=== PATIENT | female | born 1990 | race African-American/Black ===

== ENCOUNTER 2020-07-30 17:51 | Inpatient (IN) | payer OTHER ==
--- NOTE | 2020-07-30 18:09 | ER Document Report ---
ED Medical Screen (RME) - General Chief Complaint: Pelvic Pain Stated Complaint: ABDOMINAL PAIN/POSSIBLE WATER LEAKING/FEELS POPPIN Time Seen by Provider: 07/30/20 18:01 Mode of Arrival: Wheelchair Information source: Patient Notes: 29-year-old female 19 weeks today . She states she was out shopping when she felt severe cramping cramping in her pelvic area. She states when she went home she felt like she needed to have a bowel movement had a lot of pressure so she had a bowel movement and felt something popping. She states after she had a bowel movement she wiped herself good and then cleaned her hands well and examined herself in her vagina and felt something bulging and clear liquids coming out. She states she is 3 para 2. She states she does go to the [employer] [employer]. I have greeted and performed a rapid initial assessment of this patient. A comprehensive ED assessment and evaluation of the patient, analysis of test results and completion of medical decision making process will be conducted by an additional ED providers. - Related Data Allergies/Adverse Reactions: erythromycin base Allergy (Severe, Verified 07/30/20 18:09) Hives
--- NOTE | 2020-07-30 18:53 | RADIOLOGY REPORT (SQ) ---
EXAM DESCRIPTION: U/S OB LIMITED IMAGES COMPLETED DATE/TIME: 07/30/2020 6:35 pm REASON FOR STUDY: Pelvic cramping 19 weeks COMPARISON: None. TECHNIQUE: Limited transabdominal grayscale ultrasound for evaluation of specific requested obstetri scott parameters. LIMITATIONS: None. FINDINGS: CERVICAL LENGTH: The cervix is open, with a 9 x 6 cm pocket of amniotic fluid with surrou nding membranes bulging through the cervix. These findings were discussed with Dr. Mina in the e mergency room. GURMEET: Largest pocket in the uterus by the fetus, 5.3 x 2.6 cm. FHR: 145 beats per minute. PRESENTATION: Breech PLACENTA: Posterior ANATOMY: Not assessed OTHER: Fetus is 18 weeks 3 days by multiple measurements IMPRESSION: Cervix is open, large pocket of amniotic fluid with membranes bulky through the cervix. Breech fetus 18 weeks 3 days, heart rate 145 beats per minute Findings discussed with the attending physician in the emergency room Trimester of : Second trimester - 13 weeks 1 day to 27 weeks 6 days. TECHNICAL DOCUMENTATION: JOB ID: [id number] [email or web address]- All Rights Reserved Reading location - IP/workstation name: [email or web address]
--- NOTE | 2020-07-30 19:02 | ER Document Report ---
ED General - General Chief Complaint: OB Problem (<20wks) Stated Complaint: ABDOMINAL PAIN/POSSIBLE WATER LEAKING/FEELS POPPIN Time Seen by Provider: 07/30/20 18:01 Primary Care Provider: HEIDI MORSE PA-C [Primary Care Provider] - Follow up as needed Mode of Arrival: Wheelchair - [facility] Notes: 29-year-old female at 19 weeks gestation presents for cramping. Patient states around 1630 this afternoon she was grocery shopping, she began to have lower abdominal cramping. She felt a gush of fluid, went to the restroom and believes that she had just urinated on herself as she did not see any blood. Cramping progressively increased, started to radiate to her back and down her left leg. Patient states that while at home she had the urge that she had to have a bowel movement. States that she was on the toilet and pushing, she did have a bowel movement, however then felt a pop and felt something bulging in her vagina. No bleeding. No known issues with this . - Related Data Allergies/Adverse Reactions: erythromycin base Allergy (Severe, Verified 07/30/20 18:09) Hives Home Medications: PNV Past Medical History - General Information source: Patient - Social History Smoking Status: Never Smoker Chew tobacco use (# tins/day): No Frequency of alcohol use: None Drug Abuse: None Family History: Reviewed & Not Pertinent Patient has homicidal ideation: No Past Surgical History: Reports: Hx Section - x1 Review of Systems - Review of Systems Constitutional: No symptoms reported EENT: No symptoms reported Cardiovascular: No symptoms reported Respiratory: No symptoms reported Gastrointestinal: See HPI Genitourinary: No symptoms reported Female Genitourinary: . denies: Vaginal bleeding Musculoskeletal: No symptoms reported Skin: No symptoms reported Hematologic/Lymphatic: No symptoms reported Neurological/Psychological: No symptoms reported Physical Exam - Vital signs Vitals: Temp 99.5 F 07/30/20 18:10 - General General appearance: Appears well, Alert In distress: None - HEENT Head: Normocephalic, Atraumatic Pupils: PERRL - Respiratory Breath sounds: Normal - Cardiovascular Rhythm: Regular Heart sounds: Normal auscultation - Abdominal Bowel sounds: Normal Tenderness: Nontender - Genitourinary Notes: Pelvic exam deferred given ultrasound results, will be completed by OB - Extremities General upper extremity: Normal ROM General lower extremity: Normal ROM - Neurological Neuro grossly intact: Yes Cognition: Normal Orientation: AAOx4 - Psychological Associated symptoms: Normal affect - Skin Skin Temperature: Warm Course - Re-evaluation Re-evalutation: 29-year-old female at 19w here for cramping and bulging sensation. While patient was in the lobby, I received a call from radiology with ultrasound results which showed a dilated cervix and bulging membranes, positive cardiac activity. Patient was updated on the ultrasound findings and impending previable delivery and plan to have OB consulted and discuss expectant management. Patient otherwise nontoxic-appearing, hemodynamically stable, abdomen soft, pelvic exam deferred. 07/30/20 19:09 Dr Mosley consulted, will come see in ED 07/30/20 19:44 OB discussing with patient 07/30/20 20:17 Current plan is to have patient admitted to OB for expectant management - Vital Signs Vital signs: Temp Pulse Resp BP Pulse Ox 99.5 F 97 18 131/74 H 100 07/30/20 18:19 07/30/20 18:19 07/30/20 18:19 07/30/20 18:19 07/30/20 18:19 - Laboratory Result Diagrams: 07/30/20 18:47 07/30/20 18:47 Laboratory results interpreted by me: 07/30/20 07/30/20 07/30/20 18:47 18:47 18:47 WBC 10.8 H Sodium 135.3 L BUN 6 L Alkaline Phosphatase 29 L Urine Glucose (UA) 150 H - Diagnostic Test Radiology reviewed: Image reviewed, Reports reviewed Discharge - Discharge Clinical Impression: Spontaneous Disposition: ADMITTED INPATIENT Admitting Provider: Melany Unit Admitted: Post Referrals: HEIDI MORSE PA-C [Primary Care Provider] - Follow up as needed
[2020-07-30 19:21] LABS: ABSOLUTE EOSINOPHILS # (AUTO) 0.1 10^3/uL (0.0-0.6); ABSOLUTE MONOCYTES (AUTO) 0.7 10^3/uL (0.1-1.4); BASOPHILS % (AUTO) 0.2 % (0-2); EOSINOPHILS % (AUTO) 0.8 % (0-6); HEMATOCRIT 42.2 % (36.0-47.0); HEMOGLOBIN 14.5 g/dL (12.0-15.5); LYMPHOCYTES % (AUTO) 18.3 % (13-45); MEAN CORPUSCULAR HEMOGLOBIN 32.4 pg (27.0-33.4); MEAN CORPUSCULAR HGB CONC 34.4 g/dL (32.0-36.0); MEAN CORPUSCULAR VOLUME 94 fl (80-97); MONOCYTES % (AUTO) 6.1 % (3-13); PLATELET COUNT 238 10^3/uL (150-450); RED BLOOD COUNT 4.47 10^6/uL (3.72-5.28); RED CELL DISTRIBUTION WIDTH 13.5 % (11.5-14.0); SEGMENTED NEUTROPHILS % (AUTO) 74.6 % (42-78); TOTAL CELLS COUNTED % (AUTO) 100 %; WHITE BLOOD COUNT 10.8 10^3/uL (4.0-10.5)
[2020-07-30 19:28] LABS: ALBUMIN 3.8 g/dL (3.5-5.0); ALKALINE PHOSPHATASE 29 U/L (38-126); ANION GAP 9 (5-19); ASPARTATE AMINO TRANSFERASE 18 U/L (14-36); BILIRUBIN,TOTAL 0.4 mg/dL (0.2-1.3); BLOOD UREA NITROGEN 6 mg/dL (7-20); CALCIUM 9.4 mg/dL (8.4-10.2); CARBON DIOXIDE 24 mmol/L (22-30); CHLORIDE 102 mmol/L (98-107); GLUCOSE 98 mg/dL (75-110); TOTAL PROTEIN 7.4 g/dL (6.3-8.2)
[2020-07-30 19:36] LABS: APPEARANCE,URINE SLIGHTLY-CLOUDY; BILIRUBIN,URINE NEGATIVE (NEGATIVE); COLOR,URINE YELLOW; GLUCOSE, URINE 150 mg/dL (NEGATIVE); KETONES,URINE NEGATIVE (NEGATIVE); LEUKOCYTE ESTERASE,URINE NEGATIVE (NEGATIVE); NITRITE,URINE NEGATIVE (NEGATIVE); PROTEIN,URINE NEGATIVE (NEGATIVE); URINE SPECIFIC GRAVITY 1.017; UROBILINOGEN,URINE NEGATIVE mg/dL (<2.0)
[2020-07-30] MEDS ORDERED: MORPHINE SULFATE 10 MG/ML INJ IV PRN ×2 (21:28→21:29)
[2020-07-30] MEDS ORDERED: OXYCODONE-ACETAMINOPHEN 5-325 MG TABLET PO PRN ×2 (21:31→21:32)
[2020-07-30] MEDS ORDERED: PROMETHAZINE HCL INJ 25 MG/1 ML VIAL IV PRN (22:39)
[2020-07-30] MEDS ORDERED: ONDANSETRON HCL INJ/PF 4 MG/2 ML SDV IV PRN (22:39)
[2020-07-31] MEDS: ZOLPIDEM TARTRATE 5 MG TABLET PO SCH (00:51)
--- NOTE | 2020-07-31 10:54 | PDOC PROGRESS REPORT ---
Subjective Progress Note for:: 07/31/20 Subjective:: She reports cramping today. Reason For Visit: SPONTANEOUS Physical Exam - Physical Exam Vital Signs: Temp Pulse Resp BP Pulse Ox 98.5 F 94 16 116/59 L 97 07/31/20 07:41 07/31/20 07:41 07/31/20 07:41 07/31/20 07:41 07/31/20 07:41 Intake & Output 07/30/20 07/31/20 08/01/20 06:59 06:59 06:59 Intake Total 1200 Balance 1200 Weight 103.8 kg General appearance: PRESENT: no acute distress, well-developed, well-nourished Head exam: PRESENT: atraumatic, normocephalic Pulses: PRESENT: normal dorsalis pedis pul, +2 pedal pulses bilateral Vascular exam: PRESENT: normal capillary refill GI/Abdominal exam: PRESENT: other - gravid - Gynecological Exam Labia: normal Introitus: normal - Bulging membranes noted at the introitus on exam with sterile glove Did not attempt to check cervix at the US report stated complete dilation Result Laboratory Results: 07/30/20 18:47 07/30/20 18:47 07/30/20 07/30/20 07/30/20 18:47 18:47 18:47 WBC 10.8 H RBC 4.47 Hgb 14.5 Hct 42.2 MCV 94 MCH 32.4 MCHC 34.4 RDW 13.5 Plt Count 238 Seg Neutrophils % 74.6 Sodium 135.3 L Potassium 4.0 Chloride 102 Carbon Dioxide 24 Anion Gap 9 BUN 6 L Creatinine 0.56 Est GFR ( Amer) > 60 Glucose 98 Calcium 9.4 Total Bilirubin 0.4 AST 18 Alkaline Phosphatase 29 L Total Protein 7.4 Albumin 3.8 Urine Color YELLOW Urine Appearance SLIGHTLY-CLOUDY Urine pH 6.0 Ur Specific [place] 1.017 Urine Protein NEGATIVE Urine Glucose (UA) 150 H Urine Ketones NEGATIVE Urine Blood NEGATIVE Urine Nitrite NEGATIVE Ur Leukocyte Esterase NEGATIVE Urine WBC (Auto) 2 Urine RBC (Auto) 0 Blood Type Antibody Screen 07/30/20 21:46 WBC RBC Hgb Hct MCV MCH MCHC RDW Plt Count Seg Neutrophils % Sodium Potassium Chloride Carbon Dioxide Anion Gap BUN Creatinine Est GFR ( Amer) Glucose Calcium Total Bilirubin AST Alkaline Phosphatase Total Protein Albumin Urine Color Urine Appearance Urine pH Ur Specific [place] Urine Protein Urine Glucose (UA) Urine Ketones Urine Blood Urine Nitrite Ur Leukocyte Esterase Urine WBC (Auto) Urine RBC (Auto) Blood Type A POSITIVE Antibody Screen NEGATIVE Impressions: Obstetrics Ultrasound 07/30/20 18:16 IMPRESSION: Cervix is open, large pocket of amniotic fluid with membranes bulky through the cervix. Breech fetus 18 weeks 3 days, heart rate 145 beats per minute Findings discussed with the attending physician in the emergency room Trimester of : Second trimester - 13 weeks 1 day to 27 weeks 6 days. Incompetent cervix. Assessment & Plan - Time Time Spent with patient: 15-24 minutes - Plan Summary Plan Summary: Pt with incompetent cervix at 18 wks. Continue with monitoring and observation.
[2020-07-31 10:58] LABS: ABSOLUTE MONOCYTES (AUTO) 0.9 10^3/uL (0.1-1.4); ABSOLUTE NEUT (AUTO) 11.1 10^3/uL (1.7-8.2); BASOPHILS % (AUTO) 0.3 % (0-2); EOSINOPHILS % (AUTO) 0.1 % (0-6); HEMATOCRIT 38.7 % (36.0-47.0); HEMOGLOBIN 13.4 g/dL (12.0-15.5); MEAN CORPUSCULAR HEMOGLOBIN 32.2 pg (27.0-33.4); MEAN CORPUSCULAR HGB CONC 34.5 g/dL (32.0-36.0); MEAN CORPUSCULAR VOLUME 93 fl (80-97); MONOCYTES % (AUTO) 6.6 % (3-13); PLATELET COUNT 222 10^3/uL (150-450); RED BLOOD COUNT 4.15 10^6/uL (3.72-5.28); RED CELL DISTRIBUTION WIDTH 13.5 % (11.5-14.0); TOTAL CELLS COUNTED % (AUTO) 100 %
[2020-07-31] MEDS ORDERED: MISOPROSTOL 0.2 MG TABLET PR ONE ×2 (13:19→16:39)
--- NOTE | 2020-07-31 13:23 | Progress Note ---
Provider Note Provider Note: CNM arrived just after delivery of nonviable baby. placenta did not deliver with baby. cord broke and baby wrapped and handed to mother. dr drew in and advised cytotec 400mcg pr now. pt instructed to call if bleeding is heavy. mother stable with partner at bedside, not bleeding.
[2020-07-31] MEDS ORDERED: MISOPROSTOL 0.2 MG TABLET ONE (13:27)
[2020-07-31] MEDS ORDERED: FENTANYL CITRATE INJ/PF 100 MCG/2 ML AMPUL IV ONE (16:01)
[2020-07-31] MEDS ORDERED: FENTANYL CITRATE INJ/PF 100 MCG/2 ML AMPUL ONE ×2 (16:09→21:16)
--- NOTE | 2020-07-31 16:39 | PDOC PROGRESS REPORT ---
Subjective Progress Note for:: 07/31/20 Subjective:: The placenta has not delivered. Reason For Visit: SPONTANEOUS Physical Exam - Physical Exam Vital Signs: Temp Pulse Resp BP Pulse Ox 98.5 F 94 16 116/59 L 97 07/31/20 10:00 07/31/20 07:41 07/31/20 07:41 07/31/20 07:41 07/31/20 07:41 Intake & Output 07/30/20 07/31/20 08/01/20 06:59 06:59 06:59 Intake Total 1200 Balance 1200 Weight 103.8 kg General appearance: PRESENT: no acute distress, well-developed, well-nourished Gentrourinary exam: PRESENT: other - There is no cord visible at the cervix. - Gynecological Exam Labia: normal Introitus: normal - Bulging membranes noted at the introitus on exam with sterile glove Did not attempt to check cervix at the US report stated complete dilation Result Laboratory Results: 07/31/20 10:46 07/30/20 18:47 07/30/20 07/30/20 07/30/20 18:47 18:47 18:47 WBC 10.8 H RBC 4.47 Hgb 14.5 Hct 42.2 MCV 94 MCH 32.4 MCHC 34.4 RDW 13.5 Plt Count 238 Seg Neutrophils % 74.6 Sodium 135.3 L Potassium 4.0 Chloride 102 Carbon Dioxide 24 Anion Gap 9 BUN 6 L Creatinine 0.56 Est GFR ( Amer) > 60 Glucose 98 Calcium 9.4 Total Bilirubin 0.4 AST 18 Alkaline Phosphatase 29 L Total Protein 7.4 Albumin 3.8 Urine Color YELLOW Urine Appearance SLIGHTLY-CLOUDY Urine pH 6.0 Ur Specific [place] 1.017 Urine Protein NEGATIVE Urine Glucose (UA) 150 H Urine Ketones NEGATIVE Urine Blood NEGATIVE Urine Nitrite NEGATIVE Ur Leukocyte Esterase NEGATIVE Urine WBC (Auto) 2 Urine RBC (Auto) 0 Blood Type Antibody Screen 07/30/20 07/31/20 21:46 10:46 WBC 13.0 H RBC 4.15 Hgb 13.4 Hct 38.7 MCV 93 MCH 32.2 MCHC 34.5 RDW 13.5 Plt Count 222 Seg Neutrophils % 85.0 H Sodium Potassium Chloride Carbon Dioxide Anion Gap BUN Creatinine Est GFR ( Amer) Glucose Calcium Total Bilirubin AST Alkaline Phosphatase Total Protein Albumin Urine Color Urine Appearance Urine pH Ur Specific [place] Urine Protein Urine Glucose (UA) Urine Ketones Urine Blood Urine Nitrite Ur Leukocyte Esterase Urine WBC (Auto) Urine RBC (Auto) Blood Type A POSITIVE Antibody Screen NEGATIVE Impressions: Obstetrics Ultrasound 07/30/20 18:16 IMPRESSION: Cervix is open, large pocket of amniotic fluid with membranes bulky through the cervix. Breech fetus 18 weeks 3 days, heart rate 145 beats per minute Findings discussed with the attending physician in the emergency room Trimester of : Second trimester - 13 weeks 1 day to 27 weeks 6 days. Assessment & Plan - Diagnosis (1) Retained placenta Qualifiers: Retained placenta detail: complete placenta Qualified Code(s): O73.0 - Retained placenta without hemorrhage Is this a current diagnosis for this admission?: Yes (2) Vaginal delivery Is this a current diagnosis for this admission?: Yes (3) Incompetent cervix during second trimester, antepartum Is this a current diagnosis for this admission?: Yes - Time Time Spent with patient: 15-24 minutes - Plan Summary Plan Summary: Consents signed for a d and c to remove a retained placenta.
[2020-07-31] MEDS ORDERED: GLUCAGON,HUMAN RECOMB 1 MG INJ SUBCUT PRN (20:21)
[2020-07-31] MEDS ORDERED: DEXTROSE 50%-WATER 25 GM/50 ML DISP.SYRIN IV PRN ×2 (20:21)
[2020-07-31] MEDS ORDERED: DEXTROSE 40% GEL 15 GM TUBE PO PRN ×2 (20:21)
[2020-07-31] MEDS ORDERED: KETOROLAC TROMETHAMINE 60 MG/2 ML SDV ONE (21:16)
[2020-07-31] MEDS ORDERED: LIDOCAINE 2% INJ-PF (20 MG/ML) 10 ML AMPUL ONE (21:16)
[2020-07-31] MEDS ORDERED: HYDROMORPHONE HCL INJ/PF 2 MG/ML AMPULE ONE (21:17)
[2020-07-31] MEDS ORDERED: ONDANSETRON HCL INJ/PF 4 MG/2 ML SDV ONE (21:17)
[2020-07-31] MEDS ORDERED: PROPOFOL INJ 200 MG/20 ML VIAL IV ONE (21:17)
[2020-07-31] MEDS ORDERED: DEXAMETHASONE SOD PHOSPHATE INJ 4 MG/1 ML VIAL ONE (21:17)
[2020-07-31] MEDS ORDERED: MIDAZOLAM 2 MG/2 ML INJ ONE (21:17)
[2020-07-31] MEDS ORDERED: MEPERIDINE HCL/PF INJ 25 MG/1 ML DISP.SYRIN IV PRN (22:29)
[2020-07-31] MEDS ORDERED: OXYCODONE-ACETAMINOPHEN 5-325 MG TABLET PO PRN ×2 (22:29)
[2020-07-31] MEDS ORDERED: PROMETHAZINE HCL INJ 25 MG/1 ML VIAL IV PRN ×3 (22:29→22:44)
[2020-07-31] MEDS ORDERED: FENTANYL CITRATE INJ/PF 100 MCG/2 ML AMPUL IV PRN ×3 (22:29)
[2020-07-31] MEDS ORDERED: MORPHINE SULFATE 10 MG/ML INJ IV PRN (22:29)
[2020-07-31] MEDS ORDERED: DIPHENHYDRAMINE HCL 50 MG/ML VIAL IV PRN (22:29)
[2020-07-31] MEDS ORDERED: CEFAZOLIN INJ 1 GM VIAL ONE (22:33)
[2020-07-31] MEDS ORDERED: OXYTOCIN 10 UNIT/ML VIAL ONE (22:40)
[2020-07-31] MEDS ORDERED: NA PHOS,M-B/NA PHOS,DI-BA (ADULT) 133 ML ENEMA PR PRN (22:44)
[2020-07-31] MEDS ORDERED: DIBUCAINE 1% OINTMENT 28 GM TP PRN (22:44)
[2020-07-31] MEDS ORDERED: ZOLPIDEM TARTRATE 5 MG TABLET PO PRN (22:44)
[2020-07-31] MEDS ORDERED: OXYTOCIN/0.9 % SODIUM CHLORIDE 30 UNIT/500 ML RTUINJ IV PRN (22:44)
[2020-07-31] MEDS ORDERED: MAGNESIUM HYDROXIDE SUSP 30 ML UDCUP PO PRN (22:44)
[2020-07-31] MEDS ORDERED: GLYCERIN/WITCH HAZEL LEAF 1 EACH MED..WIPE TP PRN (22:44)
[2020-07-31] MEDS ORDERED: DIPHENHYDRAMINE HCL 25 MG CAPSULE PO PRN (22:44)
[2020-07-31] MEDS ORDERED: PSEUDOEPHEDRINE HCL 30 MG TABLET PO PRN (22:44)
[2020-07-31] MEDS ORDERED: BENZOCAINE/MENTHOL AEROSOL SPRAY 56 ML TOP PRN (22:44)
[2020-07-31] MEDS ORDERED: PROMETHAZINE HCL 25 MG TABLET PO PRN (22:44)
[2020-07-31] MEDS ORDERED: PROMETHAZINE HCL 25 MG SUPP.RECT PR PRN (22:44)
--- NOTE | 2020-07-31 22:54 | Operative Report ---
Operative Report DATE OF SURGERY: 07/31/20 PREOPERATIVE DIAGNOSIS: Retained placenta after delivery of an 18-week fetus POSTOPERATIVE DIAGNOSIS: Same OPERATION: D&C with ultrasound guidance SURGEON: OSMIN KIRBY ANESTHESIA: LMAC TISSUE REMOVED OR ALTERED: Uterine contents COMPLICATIONS: Heavy bleeding ESTIMATED BLOOD LOSS: 350 cc INTRAOPERATIVE FINDINGS: Uterus sounds to 14 cm at the end of the case PROCEDURE: Patient was taken the OR and placed in supine position. Anesthesia was induced and she is placed in a dorsolithotomy position. She had previously delivered an 18-week fetus and the placenta was retained. A speculum was placed in the vagina and the anterior lip cervix was grasped with a tenaculum. The cervix was dilated already and did not need further dilatation. A size 14 curette was used to attempt to evacuate the uterus. This did pull the placenta down to the cervix and it was grasped with ring forceps and removed. A gentle sharp curettage was carried out under ultrasound guidance which showed no retained placenta. This was done with the banjo curette. While viewing with the ultrasound we could see the curette go to the fundus. There was no evidence of further retained placenta. At this point the procedure was stopped all instruments were removed from the vagina. She is placed back in supine position taken to recovery in stable condition.
[2020-07-31] MEDS ORDERED: FAMOTIDINE 20 MG TABLET PO ONE (23:45)
[2020-08-01] MEDS: ZOLPIDEM TARTRATE 5 MG TABLET PO SCH (00:27)
[2020-08-01] MEDS ORDERED: MISOPROSTOL 0.2 MG TABLET PO ONE (00:30)
[2020-08-01] MEDS ORDERED: FAMOTIDINE 20 MG TABLET PO ONE (00:30)
[2020-08-01] MEDS: IBUPROFEN 800 MG TABLET PO SCH ×3 (07:24→22:32)
[2020-08-01 08:25] LABS: HEMATOCRIT 33.8 % (36.0-47.0); HEMOGLOBIN 11.6 g/dL (12.0-15.5); MEAN CORPUSCULAR HEMOGLOBIN 32.3 pg (27.0-33.4); MEAN CORPUSCULAR HGB CONC 34.4 g/dL (32.0-36.0); MEAN CORPUSCULAR VOLUME 94 fl (80-97); PLATELET COUNT 228 10^3/uL (150-450); RED CELL DISTRIBUTION WIDTH 13.4 % (11.5-14.0)
[2020-08-01] MEDS: FAMOTIDINE 20 MG TABLET PO SCH ×2 (10:13→22:31)
[2020-08-01] MEDS: DOCUSATE SODIUM 100 MG CAPSULE PO SCH ×2 (10:13→17:52)
[2020-08-01] MEDS: FERROUS SULFATE 325 MG TABLET PO SCH ×2 (10:14→17:52)
[2020-08-01] MEDS: SENNOSIDES/DOCUSATE 8.6-50 MG 1 EACH TABLET PO SCH (10:14)
[2020-08-01] MEDS ORDERED: RINGERS LACTATED IV ONE (13:28)
[2020-08-01] MEDS ORDERED: DOPAMINE HCL/DEXTROSE 5%-WATER 800 MG/250 ML RTUINJ IV PRN (13:28)
--- NOTE | 2020-08-01 15:09 | PDOC PROGRESS REPORT ---
Subjective Progress Note for:: 08/01/20 Subjective:: doing well, denies dizzy or lightheaded Reason For Visit: SPONTANEOUS Physical Exam - Physical Exam Vital Signs: Temp Pulse Resp BP Pulse Ox 98.8 F 90 17 101/54 L 99 08/01/20 10:00 08/01/20 10:00 08/01/20 10:00 08/01/20 10:00 08/01/20 10:00 Intake & Output 07/31/20 08/01/20 08/02/20 06:59 06:59 06:59 Intake Total 1200 1200 320 Output Total 650 Balance 1200 550 320 Weight 103.8 kg 55.4 kg General appearance: PRESENT: no acute distress, well-developed, well-nourished Head exam: PRESENT: atraumatic, normocephalic Respiratory exam: PRESENT: clear to auscultation tess, symmetrical, unlabored Cardiovascular exam: PRESENT: RRR. ABSENT: diastolic murmur, rubs, systolic murmur Pulses: PRESENT: normal dorsalis pedis pul, +2 pedal pulses bilateral GI/Abdominal exam: PRESENT: normal bowel sounds, soft. ABSENT: distended, guarding, mass, organolmegaly, rebound, tenderness Rectal exam: PRESENT: deferred Extremities exam: PRESENT: full ROM. ABSENT: calf tenderness, clubbing, pedal edema Neurological exam: PRESENT: alert, awake, oriented to person, oriented to place, oriented to time, oriented to situation, CN II-XII grossly intact. ABSENT: motor sensory deficit Psychiatric exam: PRESENT: appropriate affect, normal mood. ABSENT: homicidal ideation, suicidal ideation Skin exam: PRESENT: dry, intact, warm. ABSENT: cyanosis, rash - Gynecological Exam Labia: normal Introitus: normal - Bulging membranes noted at the introitus on exam with sterile glove Did not attempt to check cervix at the US report stated complete dilation Result Laboratory Results: 08/01/20 07:49 07/30/20 18:47 08/01/20 07:49 WBC 14.0 H RBC 3.60 L Hgb 11.6 L Hct 33.8 L MCV 94 MCH 32.3 MCHC 34.4 RDW 13.4 Plt Count 228 Impressions: Obstetrics Ultrasound 07/30/20 18:16 IMPRESSION: Cervix is open, large pocket of amniotic fluid with membranes bulky through the cervix. Breech fetus 18 weeks 3 days, heart rate 145 beats per minute Findings discussed with the attending physician in the emergency room Trimester of : Second trimester - 13 weeks 1 day to 27 weeks 6 days. Status: Imported from PACS Assessment & Plan - Diagnosis (1) demise Is this a current diagnosis for this admission?: Yes Plan: IUFD at 18wks due to Incompetent cervix and PPROM. Delivered nonviable 18wks girl. baby is in cuddle cot still in room H/o PPD. Offered antianxiety/antidepressant meds - pt declines at this time. She will f/u next week. Reviewed increase in WBC and reviewed low grade temp and now hypotensive and pos orthostatic. Will repeat labs in am and sepsis panel done. Abx for at least 24 hours and if improved tomorrow possible able to go home on po abx (2) Retained placenta Qualifiers: Retained placenta detail: complete placenta Qualified Code(s): O73.0 - Retained placenta without hemorrhage Is this a current diagnosis for this admission?: Yes Plan: s/p D&C for retained placenta. She is doing well Reported per handoff this am large EBL. HCt decreased and 15 increase in her HR with orthostatics No need for transfusion. IVF ordered. may need Iron infusion will eval f/u labs. (3) Vaginal delivery Is this a current diagnosis for this admission?: Yes Plan: s/p delivery 18wks demise (4) Incompetent cervix during second trimester, antepartum Is this a current diagnosis for this admission?: Yes Plan: recommended patient to have cerclage next . - Time Time Spent with patient: 25-34 minutes Smoking Cessation Education: 3 to 10 minutes Medications reviewed and adjusted accordingly: Yes Anticipated discharge: Home Anticipated DC Timeframe: within 48 hours - Inpatient Certification Based on my medical assessment, after consideration of the patient's comorbidities, presenting symptoms, or acuity I expect that the services needed warrant INPATIENT care.: Yes I certify that my determination is in accordance with my understanding of Medicare's requirements for reasonable and necessary INPATIENT services [42 CFR 412.3e].: Yes Medical Necessity: Need Close Monitoring Due to Risk of Patient Decompensation, Need For IV Fluids, Need for IV Antibiotics
[2020-08-01 15:37] LABS: ABSOLUTE LYMPHOCYTES (AUTO) 2.1 10^3/uL (0.5-4.7); ABSOLUTE MONOCYTES (AUTO) 0.7 10^3/uL (0.1-1.4); ABSOLUTE NEUT (AUTO) 9.6 10^3/uL (1.7-8.2); BASOPHILS % (AUTO) 0.2 % (0-2); EOSINOPHILS % (AUTO) 0.3 % (0-6); HEMATOCRIT 31.8 % (36.0-47.0); HEMOGLOBIN 11.1 g/dL (12.0-15.5); LYMPHOCYTES % (AUTO) 16.8 % (13-45); MEAN CORPUSCULAR HEMOGLOBIN 32.5 pg (27.0-33.4); MEAN CORPUSCULAR HGB CONC 34.9 g/dL (32.0-36.0); MEAN CORPUSCULAR VOLUME 93 fl (80-97); MONOCYTES % (AUTO) 5.4 % (3-13); PLATELET COUNT 220 10^3/uL (150-450); RED BLOOD COUNT 3.42 10^6/uL (3.72-5.28); RED CELL DISTRIBUTION WIDTH 13.4 % (11.5-14.0); SEGMENTED NEUTROPHILS % (AUTO) 77.3 % (42-78); TOTAL CELLS COUNTED % (AUTO) 100 %; WHITE BLOOD COUNT 12.4 10^3/uL (4.0-10.5)
[2020-08-01 15:58] LABS: ALBUMIN 3.1 g/dL (3.5-5.0); ALKALINE PHOSPHATASE 27 U/L (38-126); ANION GAP 8 (5-19); ASPARTATE AMINO TRANSFERASE 15 U/L (14-36); BILIRUBIN,TOTAL 0.3 mg/dL (0.2-1.3); BLOOD UREA NITROGEN 7 mg/dL (7-20); CARBON DIOXIDE 21 mmol/L (22-30); CHLORIDE 106 mmol/L (98-107); GLUCOSE 109 mg/dL (75-110); POTASSIUM 3.7 mmol/L (3.6-5.0); TOTAL PROTEIN 6.2 g/dL (6.3-8.2)
[2020-08-01] MEDS: PIPERACILLIN SODIUM/TAZOBACTAM 4.5 GM in NORMAL SALINE 100 ML IV SCH (17:54)
[2020-08-01 20:08] LABS: CHLAM PCR NOT DETECTED (NOT DETECT)
[2020-08-02] MEDS: PIPERACILLIN SODIUM/TAZOBACTAM 4.5 GM in NORMAL SALINE 100 ML IV SCH ×2 (00:25→06:57)
[2020-08-02] MEDS: IBUPROFEN 800 MG TABLET PO SCH (06:57)
--- NOTE | 2020-08-02 09:24 | PDOC DISCHARGE SUMMARY ---
Impression - Admit/DC Date/PCP Admission Date/Primary Care Provider: 07/30/20 21:13 HEIDI MORSE PA-C Discharge Date: 08/02/20 - Discharge Diagnosis (1) demise Is this a current diagnosis for this admission?: Yes (2) Retained placenta Is this a current diagnosis for this admission?: Yes (3) Vaginal delivery Is this a current diagnosis for this admission?: Yes (4) SROM (spontaneous rupture of membranes) Is this a current diagnosis for this admission?: Yes (5) Spontaneous Is this a current diagnosis for this admission?: Yes - Additional Information Resuscitation Status: Full Code Discharge Diet: As Tolerated Discharge Activity: Activity As Tolerated, Balance Activity w/Rest, Pelvic Rest, No tub bath Referrals: HEIDI MORSE PA-C [Primary Care Provider] - Follow up as needed Prescriptions: Ibuprofen [Motrin 800 mg Tablet] 800 mg PO Q8 30 Days #90 tablet Home Medications: Ibuprofen [Motrin 800 mg Tablet] 800 mg PO Q8 30 Days #90 tablet 08/02/20 History of Present Illiness History of Present Illness: RICKEY YOUNG is a 29 year old female Physical Exam - Physical Exam Vital Signs: Temp Pulse Resp BP Pulse Ox 98.2 F 68 18 110/56 L 100 08/02/20 08:00 08/02/20 08:00 08/02/20 08:00 08/02/20 08:00 08/02/20 08:00 Intake & Output 08/01/20 08/02/20 08/03/20 06:59 06:59 06:59 Intake Total 1200 320 Output Total 650 Balance 550 320 Weight 55.4 kg 102.5 kg - Gynecological Exam Labia: normal Introitus: normal - Bulging membranes noted at the introitus on exam with sterile glove Did not attempt to check cervix at the US report stated complete dilation Results Laboratory Results: WBC 12.4 10^3/uL (4.0-10.5) H 08/01/20 15:15 RBC 3.42 10^6/uL (3.72-5.28) L 08/01/20 15:15 Hgb 11.1 g/dL (12.0-15.5) L 08/01/20 15:15 Hct 31.8 % (36.0-47.0) L 08/01/20 15:15 MCV 93 fl (80-97) 08/01/20 15:15 MCH 32.5 pg (27.0-33.4) 08/01/20 15:15 MCHC 34.9 g/dL (32.0-36.0) 08/01/20 15:15 RDW 13.4 % (11.5-14.0) 08/01/20 15:15 Plt Count 220 10^3/uL (150-450) 08/01/20 15:15 Lymph % (Auto) 16.8 % (13-45) 08/01/20 15:15 Maury % (Auto) 5.4 % (3-13) 08/01/20 15:15 Eos % (Auto) 0.3 % (0-6) 08/01/20 15:15 Baso % (Auto) 0.2 % (0-2) 08/01/20 15:15 Absolute Neuts (auto) 9.6 10^3/uL (1.7-8.2) H 08/01/20 15:15 Absolute Lymphs (auto) 2.1 10^3/uL (0.5-4.7) 08/01/20 15:15 Absolute Monos (auto) 0.7 10^3/uL (0.1-1.4) 08/01/20 15:15 Absolute Eos (auto) 0.0 10^3/uL (0.0-0.6) 08/01/20 15:15 Absolute Basos (auto) 0.0 10^3/uL (0.0-0.2) 08/01/20 15:15 Seg Neutrophils % 77.3 % (42-78) 08/01/20 15:15 Sodium 134.6 mmol/L (137-145) L 08/01/20 15:15 Potassium 3.7 mmol/L (3.6-5.0) 08/01/20 15:15 Chloride 106 mmol/L (98-107) 08/01/20 15:15 Carbon Dioxide 21 mmol/L (22-30) L 08/01/20 15:15 Anion Gap 8 (5-19) 08/01/20 15:15 BUN 7 mg/dL (7-20) 08/01/20 15:15 Creatinine 0.56 mg/dL (0.52-1.25) 08/01/20 15:15 Est GFR ( Amer) > 60 (>60) 08/01/20 15:15 Est GFR (MDRD) Non-Af > 60 (>60) 08/01/20 15:15 Glucose 109 mg/dL (75-110) 08/01/20 15:15 Lactic Acid 0.7 mmol/L (0.7-2.1) 08/01/20 21:46 Calcium 9.0 mg/dL (8.4-10.2) 08/01/20 15:15 Total Bilirubin 0.3 mg/dL (0.2-1.3) 08/01/20 15:15 Direct Bilirubin 0.0 mg/dL (0.0-0.4) 08/01/20 15:15 Neonat Total Bilirubin Not Reportable 08/01/20 15:15 Neonat Direct Bilirubin Not Reportable 08/01/20 15:15 Neonat Indirect Bili Not Reportable 08/01/20 15:15 AST 15 U/L (14-36) 08/01/20 15:15 ALT 10 U/L (<35) 08/01/20 15:15 Alkaline Phosphatase 27 U/L (38-126) L 08/01/20 15:15 Total Protein 6.2 g/dL (6.3-8.2) L 08/01/20 15:15 Albumin 3.1 g/dL (3.5-5.0) L 08/01/20 15:15 Beta HCG, Quant 19286.00 mIU/mL (0.0-6.15) H 07/30/20 18:47 Total Beta HCG POSITIVE (NEGATIVE) 07/30/20 18:47 Urine Color YELLOW 07/30/20 18:47 Urine Appearance SLIGHTLY-CLOUDY 07/30/20 18:47 Urine pH 6.0 (5.0-9.0) 07/30/20 18:47 Ur Specific [place] 1.017 07/30/20 18:47 Urine Protein NEGATIVE mg/dL (NEGATIVE) 07/30/20 18:47 Urine Glucose (UA) 150 mg/dL (NEGATIVE) H 07/30/20 18:47 Urine Ketones NEGATIVE mg/dL (NEGATIVE) 07/30/20 18:47 Urine Blood NEGATIVE (NEGATIVE) 07/30/20 18:47 Urine Nitrite NEGATIVE (NEGATIVE) 07/30/20 18:47 Urine Bilirubin NEGATIVE (NEGATIVE) 07/30/20 18:47 Urine Urobilinogen NEGATIVE mg/dL (<2.0) 07/30/20 18:47 Ur Leukocyte Esterase NEGATIVE (NEGATIVE) 07/30/20 18:47 Urine WBC (Auto) 2 /HPF 07/30/20 18:47 Urine RBC (Auto) 0 /HPF 07/30/20 18:47 Urine Bacteria (Auto) TRACE /HPF 07/30/20 18:47 Squamous Epi Cells Auto 8 /HPF 07/30/20 18:47 Urine Mucus (Auto) OCC /LPF 07/30/20 18:47 Urine Ascorbic Acid NEGATIVE (NEGATIVE) 07/30/20 18:47 Chlamydia DNA (PCR) NOT DETECTED (NOT DETECT) 08/01/20 17:35 N.gonorrhoeae DNA (PCR) NOT DETECTED (NOT DETECT) 08/01/20 17:35 SARS-CoV-2 (PCR) NEGATIVE (NEGATIVE) 07/31/20 16:13 Blood Type A POSITIVE 07/30/20 21:46 Antibody Screen NEGATIVE 07/30/20 21:46 Rhogam Indicated RHOGAM NOT INDICATED 07/30/20 21:46 Impressions: Obstetrics Ultrasound 07/30/20 18:16 IMPRESSION: Cervix is open, large pocket of amniotic fluid with membranes bulky through the cervix. Breech fetus 18 weeks 3 days, heart rate 145 beats per minute Findings discussed with the attending physician in the emergency room Trimester of : Second trimester - 13 weeks 1 day to 27 weeks 6 days. Stroke Is this a Stroke Patient?: No Reason(s) for not prescribing Anti-thrombolytic therapy:: Not indicated Stroke Pt being discharged on Anti-coagulation therapy?: No Reason(s) for not prescribing Anti-coagulation therapy:: Not indicated Reason(s) for not prescribing Statins therapy:: Not indicated Acute Heart Failure Is this a Heart Failure Patient?: No
[2020-08-02 10:08] VITALS: BP 132/77
[2020-08-02 10:24] LABS: HEMATOCRIT 31.9 % (36.0-47.0); HEMOGLOBIN 11.1 g/dL (12.0-15.5); MEAN CORPUSCULAR HEMOGLOBIN 32.6 pg (27.0-33.4); MEAN CORPUSCULAR HGB CONC 34.9 g/dL (32.0-36.0); MEAN CORPUSCULAR VOLUME 94 fl (80-97); PLATELET COUNT 236 10^3/uL (150-450); RED BLOOD COUNT 3.41 10^6/uL (3.72-5.28); RED CELL DISTRIBUTION WIDTH 13.3 % (11.5-14.0); WHITE BLOOD COUNT 7.2 10^3/uL (4.0-10.5)
[2020-08-02] MEDS: FERROUS SULFATE 325 MG TABLET PO SCH (11:57)
[2020-08-02] MEDS: FAMOTIDINE 20 MG TABLET PO SCH (11:57)
[2020-08-02] MEDS: DOCUSATE SODIUM 100 MG CAPSULE PO SCH (11:57)
[2020-08-02] MEDS: SENNOSIDES/DOCUSATE 8.6-50 MG 1 EACH TABLET PO SCH (11:58)
== END 2020-08-02 11:20 | disposition home or self-care (01) | DRG 770 ==
LOC: ER 17:51 → EH 21:13 → 2N 22:24
PROVIDERS: ADMIT Obstetrics & Gynecology; ATTEND Obstetrics & Gynecology
PROC: 10D17ZZ Extraction of Products of Conception, Retained, Via Natural or Artificial Opening (ICD-10-PCS; principal; 2020-07-31 19:30)
DX: O03.4 Incomplete spontaneous abortion without complication (principal); O34.32 Maternal care for cervical incompetence, second trimester; Z20.828 Contact with and (suspected) exposure to other viral communicable diseases; Z3A.18 18 weeks gestation of pregnancy; Z88.1 Allergy status to other antibiotic agents
CPT/HCPCS: 36415; 76815; 80053; 81001; 83605; 84702; 85025; 85027; 86850; 86900; 86901; 87040; 87491; 87591; 87635; 88305; 940; 99285; C9803; J0690; J1100; J1170; J1885; J2250; J2270; J2405; J2543; J2590; J2704; J3010; J3490; J7050; J7120

== ENCOUNTER → 2020-08-08 | Outpatient (CLI) | payer OTHER ==
--- NOTE | 2020-08-08 12:38 | RADIOLOGY REPORT (SQ) ---
EXAM DESCRIPTION: VENOUS BILATERAL LOWER IMAGES COMPLETED DATE/TIME: 08/08/2020 12:29 pm REASON FOR STUDY: POST PARTEM LEG PAIN COMPARISON: None. TECHNIQUE: Dynamic and static vinson scale and color images acquired of both lower extremity venous sy stems. Selected spectral images acquired with additional compression and augmentation maneuvers. Imag es stored on PACS. LIMITATIONS: None. FINDINGS: RIGHT LEG COMMON FEMORAL AND FEMORAL: Normal phasicity, compression and augmentation. No visualized echogenic m aterial on vinson scale. No defects on color images. POPLITEAL: Normal compression and augmentation. No visualized echogenic material on vinson scale. No de fects on color images. CALF VESSELS: Normal compression and augmentation. No visualized echogenic material on vinson scale. No defects on color image. GSV AND SSV: Normal compression. No visualized echogenic material on vinson scale. No defects on color images. ANY DEEP VENOUS INSUFFICIENCY: Not evaluated. ANY EVIDENCE OF POPLITEAL CYST: No. OTHER: No other significant finding. LEFT LEG COMMON FEMORAL AND FEMORAL: Normal phasicity, compression and augmentation. No visualized echogenic m aterial on vinson scale. No defects on color images. POPLITEAL: Normal compression and augmentation. No visualized echogenic material on vinson scale. No de fects on color images. CALF VESSELS: Normal compression and augmentation. No visualized echogenic material on vinson scale. No defects on color images. GSV AND SSV: Normal compression. No visualized echogenic material on vinson scale. No defects on color images. ANY DEEP VENOUS INSUFFICIENCY: Not evaluated. ANY EVIDENCE POPLITEAL CYST: No. OTHER: No other significant finding. IMPRESSION: NO EVIDENCE DVT OR SVT IN EITHER LEG. TECHNICAL DOCUMENTATION: JOB ID: [id number] 2010 Collections- All Rights Reserved Reading location - IP/workstation name: [email or web address]
== END ==
LOC: SP 10:38
PROVIDERS: ATTEND Obstetrics & Gynecology
DX: O90.89 Other complications of the puerperium, not elsewhere classified (principal); M79.662 Pain in left lower leg; M79.661 Pain in right lower leg
CPT/HCPCS: 93970